=== PATIENT | male | born 1955 | race Caucasian/White ===

== ENCOUNTER 2021-08-16 11:58 | Inpatient (IN) ==
[2021-08-16] MEDS ORDERED: Ringers Solution, Lactated 1,000 ML IVC SCH (12:45)
[2021-08-16] MEDS ORDERED: *HR* OxyCODONE Immed Rel 5 MG TABLET PO PRN (12:53)
[2021-08-16] MEDS ORDERED: Famotidine 20 MG/2 ML VIAL IVP ONE (12:53)
[2021-08-16] MEDS ORDERED: *HR* Labetalol 20 MG/4 ML SYRINGE IVP PRN (12:53)
[2021-08-16] MEDS ORDERED: *HR* HYDROmorphone 2 MG TABLET PO PRN (12:53)
[2021-08-16] MEDS ORDERED: Promethazine 6.25 MG in Water for inj. (sterile) 20 ML IVPB PRN (12:53)
[2021-08-16] MEDS ORDERED: Acetaminophen IV 1,000 MG/100 ML BAG IVPB ONE (12:53)
[2021-08-16] MEDS ORDERED: Ampicillin/Sulbactam 3,000 MG in 0.9 % Sodium Chloride Mini Bag 100 ML IVPB ONE (13:15)
[2021-08-16] MEDS ORDERED: *HR* Propofol 200 MG/20 ML VIAL IVP ONE (13:58)
[2021-08-16] MEDS ORDERED: *HR* Midazolam HCl 2 MG/2 ML VIAL ONE (13:58)
[2021-08-16] MEDS ORDERED: *HR* FentaNYL (PF) 100 MCG/2 ML VIAL ONE (13:58)
[2021-08-16] MEDS ORDERED: Lidocaine -MPF 2% 5 ML VIAL ONE (13:59)
[2021-08-16] MEDS ORDERED: Lidocaine HCL 4 ML Topical Solution (Laryng-O-Jet Kit Sterile Pak) TP ONE (14:00)
[2021-08-16] MEDS ORDERED: *HR* Rocuronium Bromide 50 MG/5 ML VIAL ONE (14:00)
[2021-08-16] MEDS ORDERED: Isovue-300 50ML VIAL ONE (14:19)
[2021-08-16] MEDS ORDERED: Ondansetron 4 MG/2 ML VIAL ONE (15:18)
[2021-08-16] MEDS ORDERED: Ketorolac 30 MG/ML VIAL ONE (15:36)
[2021-08-16] MEDS ORDERED: Sugammadex Sodium 200 MG/2 ML VIAL IV ONE (15:38)
[2021-08-16] MEDS ORDERED: *HR* HYDROMORPHONE 2 MG/ML VIAL ONE (15:45)
[2021-08-16] MEDS ORDERED: Ketamine HCL *QUVA* 50mg (1mL) SYRINGE ONE (15:49)
[2021-08-16] MEDS: *HR* HYDROmorphone (PF) 1 MG/ML SYRINGE IVP PRN ×3 (18:01→18:23)
[2021-08-16] MEDS ORDERED: Ondansetron 4 MG/2 ML VIAL IVP PRN (19:30)
[2021-08-16] MEDS ORDERED: *HR* HYDROmorphone (PF) 1 MG/ML SYRINGE IVP PRN (19:30)
[2021-08-16] MEDS ORDERED: Ketorolac 30 MG/ML VIAL IVP PRN (19:30)
[2021-08-16] MEDS: *HR* Heparin 5,000 UNIT/ML VIAL SQ SCH (20:19)
[2021-08-16] MEDS: 0.9 % Sodium Chloride 1,000 ML IVC SCH (20:20)
[2021-08-16] MEDS: Acetaminophen IV 1,000 MG/100 ML BAG IVPB SCH (20:58)
[2021-08-17] MEDS: Acetaminophen IV 1,000 MG/100 ML BAG IVPB SCH ×4 (00:41→17:58)
[2021-08-17] MEDS: Piperacillin/Tazobactam 3.375 GM in 0.9 % Sodium Chloride Mini Bag 100 ML IVPB SCH ×3 (00:42→16:17)
[2021-08-17 02:11] LABS: Basophils % 0.2 %; Hematocrit 25.9 % (37.5-50.1); Hemoglobin 8.9 g/dL (12.9-16.9); Immature Granulocytes % 0.6 % (0-4); Lymphocytes # 0.5 K/mcL (0.6-4.6); Lymphocytes % 10.6 %; Mean Corpuscular HGB Conc 34.4 g/dL (31.6-35.5); Mean Corpuscular Hemoglobin 32.7 pg (28.0-33.3); Mean Corpuscular Volume 95.2 fL (83.0-100.0); Mean Platelet Volume 12.1 fL (9.4-12.4); Monocytes # 0.2 K/mcL (0.0-1.3); Monocytes % 3.7 %; Neutrophils # 4.3 K/mcL (1.6-8.9); Platelet Count 261 K/mcL (140-400); Red Blood Count 2.72 M/mcL (4.19-5.50); Red Cell Distribution Width 15.9 % (11.5-14.5); Segmented Neutrophils % 84.9 %; White Blood Count 5.1 K/mcL (4.3-11.1)
[2021-08-17 02:37] LABS: BUN/Creatinine Ratio 11 (6-26); Blood Urea Nitrogen 9 mg/dL (8-23); Calcium 8.7 mg/dL (8.6-10.3); Carbon Dioxide 25 mEq/L (23-29); Chloride 106 mEq/L (98-107); Glucose 139 mg/dL (70-105); Osmolality,Calculated 283 (280-300); Potassium 4.2 mEq/L (3.5-5.1); Sodium 136 mEq/L (136-145); eGFR For African Americans > 60 (> 60); eGFR For Non-African Americans > 60 (> 60)
[2021-08-17] MEDS: *HR* Heparin 5,000 UNIT/ML VIAL SQ SCH ×2 (05:20→16:15)
[2021-08-17] MEDS: 0.9 % Sodium Chloride 1,000 ML IVC SCH ×2 (06:34→16:16)
[2021-08-17] MEDS ORDERED: Orphenadrine 60 MG/2 ML VIAL IM PRN (08:34)
[2021-08-17] MEDS: Pantoprazole 40 MG VIAL IVP SCH (09:06)
[2021-08-17] MEDS: Gabapentin 100 MG CAPSULE PO SCH ×3 (09:09→20:39)
[2021-08-17] MEDS: polyethylene glycoL 3350 17 GM POWD.PACK PO SCH (09:09)
[2021-08-17] MEDS: Ketorolac 30 MG/ML VIAL IVP SCH ×2 (12:40→16:15)
[2021-08-18] MEDS: Ketorolac 30 MG/ML VIAL IVP SCH ×5 (00:38→23:46)
[2021-08-18] MEDS: Acetaminophen IV 1,000 MG/100 ML BAG IVPB SCH ×5 (00:39→23:54)
[2021-08-18] MEDS: Piperacillin/Tazobactam 3.375 GM in 0.9 % Sodium Chloride Mini Bag 100 ML IVPB SCH ×4 (00:40→23:52)
[2021-08-18] MEDS: 0.9 % Sodium Chloride 1,000 ML IVC SCH ×3 (00:41→20:59)
[2021-08-18] MEDS: *HR* Heparin 5,000 UNIT/ML VIAL SQ SCH ×2 (05:46→18:35)
[2021-08-18 06:41] LABS: Basophils % 0.6 %; Eosinophils % 0.8 %; Hematocrit 22.2 % (37.5-50.1); Immature Granulocytes % 0.2 % (0-4); Lymphocytes # 1.4 K/mcL (0.6-4.6); Lymphocytes % 27.9 %; Mean Corpuscular HGB Conc 32.4 g/dL (31.6-35.5); Mean Corpuscular Hemoglobin 31.6 pg (28.0-33.3); Mean Corpuscular Volume 97.4 fL (83.0-100.0); Mean Platelet Volume 11.7 fL (9.4-12.4); Monocytes # 0.3 K/mcL (0.0-1.3); Monocytes % 6.6 %; Neutrophils # 3.2 K/mcL (1.6-8.9); Platelet Count 189 K/mcL (140-400); Red Blood Count 2.28 M/mcL (4.19-5.50); Red Cell Distribution Width 16.2 % (11.5-14.5); Segmented Neutrophils % 63.9 %
[2021-08-18 06:43] LABS: Hemoglobin 7.2 g/dL (12.9-16.9)
[2021-08-18 06:59] LABS: BUN/Creatinine Ratio 10 (6-26); Blood Urea Nitrogen 9 mg/dL (8-23); Calcium 8.6 mg/dL (8.6-10.3); Carbon Dioxide 27 mEq/L (23-29); Chloride 110 mEq/L (98-107); Glucose 87 mg/dL (70-105); Osmolality,Calculated 288 (280-300); Potassium 3.8 mEq/L (3.5-5.1); Sodium 140 mEq/L (136-145); eGFR For African Americans > 60 (> 60); eGFR For Non-African Americans > 60 (> 60)
[2021-08-18 07:07] LABS: Magnesium 1.8 mg/dL (1.6-2.6); Phosphorous 2.7 mg/dL (2.7-4.5)
[2021-08-18] MEDS: polyethylene glycoL 3350 17 GM POWD.PACK PO SCH (10:24)
[2021-08-18] MEDS: Pantoprazole 40 MG VIAL IVP SCH (10:25)
[2021-08-18] MEDS: Gabapentin 100 MG CAPSULE PO SCH ×3 (10:25→20:36)
[2021-08-19 01:54] LABS: Basophils % 0.5 %; Eosinophils # 0.1 K/mcL (0.0-0.6); Eosinophils % 1.8 %; Hematocrit 21.9 % (37.5-50.1); Hemoglobin 7.2 g/dL (12.9-16.9); Immature Granulocytes % 0.3 % (0-4); Lymphocytes # 1.2 K/mcL (0.6-4.6); Lymphocytes % 30.2 %; Mean Corpuscular HGB Conc 32.9 g/dL (31.6-35.5); Mean Corpuscular Volume 97.3 fL (83.0-100.0); Mean Platelet Volume 11.2 fL (9.4-12.4); Monocytes # 0.3 K/mcL (0.0-1.3); Monocytes % 7.1 %; Neutrophils # 2.4 K/mcL (1.6-8.9); Platelet Count 192 K/mcL (140-400); Red Blood Count 2.25 M/mcL (4.19-5.50); Segmented Neutrophils % 60.1 %; White Blood Count 3.9 K/mcL (4.3-11.1)
[2021-08-19 02:13] LABS: Magnesium 1.9 mg/dL (1.6-2.6); Phosphorous 3.3 mg/dL (2.7-4.5)
[2021-08-19 02:14] LABS: BUN/Creatinine Ratio 9 (6-26); Blood Urea Nitrogen 7 mg/dL (8-23); Calcium 8.4 mg/dL (8.6-10.3); Carbon Dioxide 26 mEq/L (23-29); Chloride 111 mEq/L (98-107); Glucose 88 mg/dL (70-105); Osmolality,Calculated 289 (280-300); Potassium 3.9 mEq/L (3.5-5.1); Sodium 141 mEq/L (136-145); eGFR For African Americans > 60 (> 60); eGFR For Non-African Americans > 60 (> 60)
[2021-08-19] MEDS: *HR* Heparin 5,000 UNIT/ML VIAL SQ SCH ×2 (05:25→16:56)
[2021-08-19] MEDS: Acetaminophen IV 1,000 MG/100 ML BAG IVPB SCH ×4 (05:25→23:32)
[2021-08-19] MEDS: Ketorolac 30 MG/ML VIAL IVP SCH ×4 (05:39→23:22)
[2021-08-19] MEDS: 0.9 % Sodium Chloride 1,000 ML IVC SCH ×2 (06:26→17:00)
[2021-08-19] MEDS: Pantoprazole 40 MG VIAL IVP SCH (07:45)
[2021-08-19] MEDS: Gabapentin 100 MG CAPSULE PO SCH ×3 (07:45→20:52)
[2021-08-19] MEDS: Piperacillin/Tazobactam 3.375 GM in 0.9 % Sodium Chloride Mini Bag 100 ML IVPB SCH ×3 (07:45→23:31)
[2021-08-19] MEDS: polyethylene glycoL 3350 17 GM POWD.PACK PO SCH ×2 (07:46→16:56)
[2021-08-20] MEDS: 0.9 % Sodium Chloride 1,000 ML IVC SCH (02:53)
[2021-08-20] MEDS: *HR* Heparin 5,000 UNIT/ML VIAL SQ SCH (05:21)
[2021-08-20] MEDS: Acetaminophen IV 1,000 MG/100 ML BAG IVPB SCH (05:21)
[2021-08-20] MEDS: Ketorolac 30 MG/ML VIAL IVP SCH (05:25)
[2021-08-20] MEDS: Pantoprazole 40 MG VIAL IVP SCH (07:54)
[2021-08-20] MEDS: Piperacillin/Tazobactam 3.375 GM in 0.9 % Sodium Chloride Mini Bag 100 ML IVPB SCH (07:54)
[2021-08-20] MEDS: Gabapentin 100 MG CAPSULE PO SCH (07:54)
[2021-08-20] MEDS: polyethylene glycoL 3350 17 GM POWD.PACK PO SCH (07:54)
[2021-08-20] MEDS ORDERED: metroNIDAZOLE 500 MG TABLET PO ONE (09:00)
[2021-08-20] MEDS ORDERED: Ibuprofen 800 MG TABLET PO ONE (09:19)
[2021-08-20 11:14] VITALS: BP 120/73; PULSE 70; TEMP 99.2; O2SAT 97
[2021-08-23 11:41] LABS: Calculi Mass 17 mg
== END 2021-08-20 15:38 | disposition home health service (06) | DRG 330 ==
LOC: SAMDAY 11:58 → 3ANU 19:15
PROVIDERS: ADMIT Surgery; ATTEND Surgery

== ENCOUNTER 2022-02-18 12:21 | Inpatient (IN) ==
[~2022-02-18 12:21] MED LIST: *HR* FentaNYL (PF) 100 MCG/2 ML VIAL IVP PRN; Famotidine 20 MG/2 ML VIAL IVP ONE; Ondansetron 4 MG/2 ML VIAL IVP PRN; Ringers Solution, Lactated 1,000 ML IVC ONE
[2022-02-18] MEDS ORDERED: *HR* Midazolam HCl 2 MG/2 ML VIAL ONE (12:40)
[2022-02-18] MEDS ORDERED: *HR* FentaNYL (PF) 100 MCG/2 ML VIAL ONE (12:40)
[2022-02-18] MEDS ORDERED: *HR* Propofol 200 MG/20 ML VIAL IVP ONE (12:40)
[2022-02-18] MEDS ORDERED: cefOXitin 2,000 MG in 0.9 % Sodium Chloride 20 ML IVP ONE (13:14)
[2022-02-18] MEDS ORDERED: Ondansetron 4 MG/2 ML VIAL ONE ×2 (13:35→16:03)
[2022-02-18] MEDS ORDERED: Lidocaine -MPF 2% 2 ML VIAL ONE (13:35)
[2022-02-18] MEDS ORDERED: *HR* Rocuronium Bromide 50 MG/5 ML VIAL ONE ×3 (13:35→15:27)
[2022-02-18] MEDS ORDERED: *HR* HYDROMORPHONE 2 MG/ML VIAL ONE (14:17)
[2022-02-18] MEDS ORDERED: *HR* Phenylephrine 10 MG/ML VIAL ONE (14:39)
[2022-02-18] MEDS: *HR* HYDROmorphone PF 0.5 MG/0.5 ML SYRINGE IVP PRN ×4 (17:06→17:36)
[2022-02-18] MEDS ORDERED: *HR* OxyCODONE Immed Rel 5 MG TABLET PO PRN ×2 (18:06)
[2022-02-18] MEDS ORDERED: *HR* FentaNYL (PF) 100 MCG/2 ML VIAL IVP PRN (18:06)
[2022-02-18] MEDS ORDERED: Ondansetron 4 MG/2 ML VIAL IVP PRN (18:06)
[2022-02-18] MEDS ORDERED: Naloxone 0.4 MG/ML INJ IVP PRN (18:06)
[2022-02-18] MEDS ORDERED: *HR* Metoprolol 5 MG/5 ML VIAL IVP PRN (18:06)
[2022-02-18] MEDS ORDERED: Chloraseptic Spray 177 ML BOTTLE MM PRN (18:06)
[2022-02-18] MEDS: 0.9 % Sodium Chloride 1,000 ML IVC SCH (18:34)
[2022-02-18] MEDS: Acetaminophen IV 1,000 MG/100 ML BAG IVPB SCH (21:40)
[2022-02-19] MEDS: Ketorolac 30 MG/ML VIAL IVP SCH ×4 (00:10→18:35)
[2022-02-19] MEDS: 0.9 % Sodium Chloride 1,000 ML IVC SCH ×2 (03:15→15:01)
[2022-02-19 04:04] LABS: White Blood Count 7.5 K/mcL (4.3-11.1)
[2022-02-19 04:05] LABS: Basophils % 0.1 %; Hemoglobin 8.6 g/dL (12.9-16.9); Immature Granulocytes % 0.4 % (0-4); Lymphocytes # 0.7 K/mcL (0.6-4.6); Mean Corpuscular HGB Conc 34.4 g/dL (31.6-35.5); Mean Corpuscular Volume 101.6 fL (83.0-100.0); Mean Platelet Volume 12.4 fL (9.4-12.4); Monocytes # 0.6 K/mcL (0.0-1.3); Monocytes % 8.6 %; Neutrophils # 6.1 K/mcL (1.6-8.9); Platelet Count 187 K/mcL (140-400); Red Blood Count 2.46 M/mcL (4.19-5.50); Red Cell Distribution Width 14.8 % (11.5-14.5); Segmented Neutrophils % 81.9 %
[2022-02-19 04:39] LABS: BUN/Creatinine Ratio 15 (6-26); Blood Urea Nitrogen 14 mg/dL (8-23); Calcium 8.3 mg/dL (8.6-10.3); Carbon Dioxide 26 mEq/L (23-29); Chloride 106 mEq/L (98-107); Glucose 120 mg/dL (70-105); Magnesium 1.9 mg/dL (1.6-2.6); Osmolality,Calculated 288 (280-300); Phosphorous 3.6 mg/dL (2.7-4.5); Potassium 4.3 mEq/L (3.5-5.1); Sodium 138 mEq/L (136-145)
[2022-02-19] MEDS: Acetaminophen IV 1,000 MG/100 ML BAG IVPB SCH ×5 (05:42→20:31)
[2022-02-19] MEDS: Calcium Gluconate 1gm/50mL 1 GM/50 ML BAG IVPB SCH ×2 (09:45→11:37)
[2022-02-19] MEDS: Pantoprazole 40 MG VIAL IVP SCH (09:45)
[2022-02-19] MEDS: *HR* Heparin 5,000 UNIT/ML VIAL SQ SCH (18:35)
[2022-02-19] MEDS: Piperacillin/Tazobactam 3.375 GM in 0.9 % Sodium Chloride Mini Bag 100 ML IVPB SCH (21:03)
[2022-02-20 02:53] LABS: Basophils % 0.4 %; Eosinophils # 0.1 K/mcL (0.0-0.6); Eosinophils % 1.1 %; Hematocrit 23.2 % (37.5-50.1); Immature Granulocytes % 0.2 % (0-4); Lymphocytes # 1.2 K/mcL (0.6-4.6); Lymphocytes % 21.7 %; Mean Corpuscular HGB Conc 34.5 g/dL (31.6-35.5); Mean Corpuscular Hemoglobin 35.6 pg (28.0-33.3); Mean Corpuscular Volume 103.1 fL (83.0-100.0); Mean Platelet Volume 12.6 fL (9.4-12.4); Monocytes # 0.4 K/mcL (0.0-1.3); Monocytes % 6.9 %; Platelet Count 167 K/mcL (140-400); Red Blood Count 2.25 M/mcL (4.19-5.50); Red Cell Distribution Width 14.7 % (11.5-14.5); Segmented Neutrophils % 69.7 %; White Blood Count 5.7 K/mcL (4.3-11.1)
[2022-02-20] MEDS: 0.9 % Sodium Chloride 1,000 ML IVC SCH ×4 (03:03→14:02)
[2022-02-20 03:10] LABS: BUN/Creatinine Ratio 15 (6-26); Blood Urea Nitrogen 14 mg/dL (8-23); Calcium 8.7 mg/dL (8.6-10.3); Carbon Dioxide 26 mEq/L (23-29); Chloride 109 mEq/L (98-107); Glucose 89 mg/dL (70-105); Osmolality,Calculated 292 (280-300); Phosphorous 2.5 mg/dL (2.7-4.5); Potassium 3.9 mEq/L (3.5-5.1); Sodium 141 mEq/L (136-145)
[2022-02-20] MEDS: Acetaminophen IV 1,000 MG/100 ML BAG IVPB SCH ×4 (03:34→23:09)
[2022-02-20] MEDS: Ketorolac 30 MG/ML VIAL IVP SCH ×5 (05:14→23:44)
[2022-02-20] MEDS: *HR* Heparin 5,000 UNIT/ML VIAL SQ SCH ×2 (05:15→17:18)
[2022-02-20] MEDS: Piperacillin/Tazobactam 3.375 GM in 0.9 % Sodium Chloride Mini Bag 100 ML IVPB SCH ×4 (05:16→23:55)
[2022-02-20 07:48] LABS: % Iron Saturation 20 % (20-55); Iron 47 mcg/dL (65-175); Transferrin 171 mg/dL (203-362)
[2022-02-20] MEDS: Pantoprazole 40 MG VIAL IVP SCH (08:00)
[2022-02-20] MEDS: Iron Sucrose Complex 250 MG in 0.9 % Sodium Chloride 250 ML IVPB SCH (14:00)
[2022-02-21 03:29] LABS: Mean Corpuscular Volume 102.2 fL (83.0-100.0)
[2022-02-21 03:31] LABS: Basophils % 0.4 %; Eosinophils # 0.1 K/mcL (0.0-0.6); Eosinophils % 1.7 %; Hematocrit 23.2 % (37.5-50.1); Immature Granulocytes % 0.8 % (0-4); Immature Platelets 11.6 % (1.1-6.1); Lymphocytes # 1.1 K/mcL (0.6-4.6); Lymphocytes % 19.8 %; Mean Corpuscular HGB Conc 34.5 g/dL (31.6-35.5); Mean Corpuscular Hemoglobin 35.2 pg (28.0-33.3); Monocytes # 0.3 K/mcL (0.0-1.3); Monocytes % 6.2 %; Neutrophils # 3.8 K/mcL (1.6-8.9); Platelet Count 101 K/mcL (140-400); Red Blood Count 2.27 M/mcL (4.19-5.50); Red Cell Distribution Width 14.7 % (11.5-14.5); Segmented Neutrophils % 71.1 %; White Blood Count 5.3 K/mcL (4.3-11.1)
[2022-02-21 03:32] LABS: BUN/Creatinine Ratio 13 (6-26); Blood Urea Nitrogen 10 mg/dL (8-23); Calcium 8.5 mg/dL (8.6-10.3); Carbon Dioxide 23 mEq/L (23-29); Chloride 114 mEq/L (98-107); Glucose 79 mg/dL (70-105); Magnesium 1.9 mg/dL (1.6-2.6); Osmolality,Calculated 282 (280-300); Phosphorous 2.7 mg/dL (2.7-4.5); Potassium 3.8 mEq/L (3.5-5.1); Sodium 137 mEq/L (136-145)
[2022-02-21] MEDS: Ketorolac 30 MG/ML VIAL IVP SCH ×4 (05:01→23:52)
[2022-02-21] MEDS: 0.9 % Sodium Chloride 1,000 ML IVC SCH (05:02)
[2022-02-21] MEDS: Acetaminophen IV 1,000 MG/100 ML BAG IVPB SCH ×4 (05:04→22:13)
[2022-02-21] MEDS: *HR* Heparin 5,000 UNIT/ML VIAL SQ SCH (05:04)
[2022-02-21] MEDS: Piperacillin/Tazobactam 3.375 GM in 0.9 % Sodium Chloride Mini Bag 100 ML IVPB SCH ×3 (08:58→23:52)
[2022-02-21] MEDS: Pantoprazole 40 MG VIAL IVP SCH (09:00)
[2022-02-21 11:59] LABS: Hematocrit 24.6 % (37.5-50.1); Hemoglobin 8.4 g/dL (12.9-16.9)
[2022-02-21] MEDS: Iron Sucrose Complex 250 MG in 0.9 % Sodium Chloride 250 ML IVPB SCH (14:21)
[2022-02-22] MEDS: Acetaminophen IV 1,000 MG/100 ML BAG IVPB SCH (04:30)
[2022-02-22] MEDS: Ketorolac 30 MG/ML VIAL IVP SCH (05:08)
[2022-02-22] MEDS ORDERED: Acetaminophen 325 MG TABLET PO PRN (08:41)
[2022-02-22] MEDS ORDERED: Ibuprofen 800 MG TABLET PO ONE (08:41)
[2022-02-22] MEDS ORDERED: *HR* OxyCODONE Immed Rel 5 MG TABLET PO PRN ×2 (08:42)
[2022-02-22 09:00] LABS: Basophils % 0.5 %; Eosinophils # 0.2 K/mcL (0.0-0.6); Eosinophils % 3.3 %; Hematocrit 23.1 % (37.5-50.1); Immature Granulocytes % 0.7 % (0-4); Lymphocytes % 17.8 %; Mean Corpuscular HGB Conc 34.6 g/dL (31.6-35.5); Mean Corpuscular Hemoglobin 34.8 pg (28.0-33.3); Mean Corpuscular Volume 100.4 fL (83.0-100.0); Mean Platelet Volume 11.7 fL (9.4-12.4); Monocytes # 0.3 K/mcL (0.0-1.3); Monocytes % 5.5 %; Neutrophils # 3.9 K/mcL (1.6-8.9); Platelet Count 183 K/mcL (140-400); Red Cell Distribution Width 14.4 % (11.5-14.5); Segmented Neutrophils % 72.2 %; White Blood Count 5.5 K/mcL (4.3-11.1)
[2022-02-22] MEDS ORDERED: *HR* HYDROcodone/Acet 5/325 mg TABLET PO ONE (09:02)
[2022-02-22 09:14] LABS: BUN/Creatinine Ratio 14 (6-26); Blood Urea Nitrogen 10 mg/dL (8-23); Carbon Dioxide 24 mEq/L (23-29); Chloride 108 mEq/L (98-107); Glucose 85 mg/dL (70-105); Magnesium 1.9 mg/dL (1.6-2.6); Osmolality,Calculated 288 (280-300); Phosphorous 3.1 mg/dL (2.7-4.5); Potassium 3.8 mEq/L (3.5-5.1); Sodium 140 mEq/L (136-145)
[2022-02-22] MEDS: Iron Sucrose Complex 250 MG in 0.9 % Sodium Chloride 250 ML IVPB SCH (09:44)
[2022-02-22] MEDS: Pantoprazole 40 MG VIAL IVP SCH (09:53)
[2022-02-22 10:08] VITALS: BP 114/73; PULSE 78; TEMP 98.1; O2SAT 97
[2022-02-22] MEDS: Piperacillin/Tazobactam 3.375 GM in 0.9 % Sodium Chloride Mini Bag 100 ML IVPB SCH (11:31)
[2022-02-22] MEDS ORDERED: Flu Vac QV 22-23 (6MOS UP)/PF 0.5 ML SYRINGE IM ONE (13:21)
== END 2022-02-22 15:30 | disposition home or self-care (01) | DRG 983 ==
LOC: SAMDAY 12:21 → 3ANU 18:04
PROVIDERS: ADMIT Surgery; ATTEND Surgery